=== PATIENT | male | born 1995 | race Caucasian/White ===

== ENCOUNTER 2016-08-03 19:04 | Emergency (ER) | payer OTHER ==
[~2016-08-03] VITALS: Ht 185.4 cm; Wt 76.4 kg
[2016-08-03] MEDS ORDERED: Ondansetron 2 mg/mL 2 mL Inj IVPUSH ONE ×2 (19:15→22:50)
[2016-08-03] MEDS ORDERED: 0.9% Sodium Chloride 1,000 ML IV ONE ×2 (19:15→22:50)
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
[2016-08-03 19:24] LABS: Mean Corpuscular Volume 87 fL (81-100)
[2016-08-03 19:25] LABS: BASOPHILS % (AUTO) 0 % (0-3); EOSINOPHILS % (AUTO) 3 % (0-5); MONOCYTES % (AUTO) 8 % (4-12); Mean Corpuscular Hemoglobin 30.4 pg (27.0-35.0); NEUTROPHILS % (AUTO) 54 % (40-74); Platelet Count 285 bil/L (150-400)
[2016-08-03 19:38] LABS: INR 0.99 ratio
[2016-08-03] MEDS ORDERED: fentaNYL-PF 50 mCg/mL 2 mL Inj ONE (19:43)
[2016-08-03 19:49] LABS: TROPONIN T < 0.010 ug/L (0.0-0.011)
--- NOTE | 2016-08-03 19:50 | DRSVH ---
PROCEDURE: X-RAY CHEST ONE VIEW, PORTABLE ([id number]) INDICATIONS: chest pain TECHNIQUE: One view of the chest was acquired. COMPARISON: None. FINDINGS: Surgical changes and devices: director cardiology leads are seen over the chest. Lungs and pleura: No pleural effusions or pneumothorax. Lungs are clear. Mediastinum: Mediastinal contours appear normal. Heart size is normal. Bones and chest wall: No suspicious bony lesions. Overlying soft tissues appear unremarkable. IMPRESSION: Acute disease is seen in the chest. Cause of chest pain is not identified. Dictated by: Artie King M.D. on 08/03/2016 at 19:48 Approved by: Artie King M.D. on 08/03/2016 at 19:49
[2016-08-03] MEDS ORDERED: fentaNYL-PF 50 mCg/mL 2 mL Inj IVPUSH ONE ×2 (19:55→20:50)
[2016-08-03] MEDS ORDERED: Lidocaine 1%-Epi 1:100,000 50 mL Inj SUBQ ONE (20:40)
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
[2016-08-03] MEDS ORDERED: Lidocaine 1%-Epi 1:100,000 20 mL Inj ONE (20:44)
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
[2016-08-03] MEDS ORDERED: Lidocaine 1%-Epi 1:100,000 20 mL Inj SUBQ ONE (21:25)
[2016-08-03] MEDS ORDERED: _Ondansetron ODT 4 mg Tablet PO PRN (21:55)
[2016-08-03] MEDS ORDERED: _HYDROcodone/APAP 5-325 mg Tablet PO PRN (21:55)
[2016-08-03] MEDS ORDERED: CEPH-512 PO (22:20)
== END 2016-08-03 22:30 | disposition home or self-care (01) ==
LOC: SED 19:04
DX: S22.21XA Fracture of manubrium, initial encounter for closed fracture (principal); S01.81XA Laceration without foreign body of other part of head, initial encounter; S01.511A Laceration without foreign body of lip, initial encounter; S71.011A Laceration without foreign body, right hip, initial encounter; S80.11XA Contusion of right lower leg, initial encounter; V86.09XA Driver of other special all-terrain or other off-road motor vehicle injured in traffic accident, initial encounter; Y92.410 Unspecified street and highway as the place of occurrence of the external cause; Y93.55 Activity, bike riding; Y99.8 Other external cause status; R40.2410 Glasgow coma scale score 13-15, unspecified time
CPT/HCPCS: 12013; 36415; 70450; 71010; 71260; 72125; 74177; 80053; 84484; 85025; 85610; 85730; 86850; 93005; 96361; 96374; 96375; 96376; 99285; G0480; J1885; J2405; J3010; J7030; Q9967